=== PATIENT | female | born 1995 | race Hispanic/Latino ===

== ENCOUNTER 2018-08-29 02:46 | Emergency (ER) | payer SELFPAY ==
[~2018-08-29 02:46] MED LIST: TYL3 PO
[2018-08-29] MEDS ORDERED: DOXYCYCLINE HYCLATE 100 MG TABLET PO ONE (03:36)
[2018-08-29] MEDS ORDERED: AZITHROMYCIN 250 MG TABLET PO ONE (03:37)
[2018-08-29] MEDS ORDERED: LIDOCAINE HCL-MPF 1% 2ML VIAL ONE (03:37)
[2018-08-29] MEDS ORDERED: CEFTRIAXONE SODIUM 1 GM ONE (03:37)
[2018-08-29 03:45] LABS: BILIRUBIN,URINE Negative (NEGATIVE); COLOR,URINE Yellow (YELLOW); GLUCOSE, URINE (UA) Negative (NEGATIVE); KETONES,URINE Negative (NEGATIVE); LEUKOCYTE ESTERASE ,URINE Moderate (NEGATIVE); NITRATE,URINE Negative (NEGATIVE); OCCULT BLOOD,URINE Negative (NEGATIVE); PH,URINE 6.5 (5.0-8.0); PROTEIN,URINE Negative (NEGATIVE)
[2018-08-29 03:46] LABS: HCG,QUAL RESULT NEGATIVE (NEGATIVE)
[2018-08-29 03:47] LABS: APPEARANCE,URINE SLIGHTLY CLOUDY (CLEAR)
[2018-08-29 03:59] LABS: BACTERIA,URINE Few /HPF (None Seen); RBC,URINE None Seen /HPF (0-1)
== END 2018-08-29 04:27 | disposition home or self-care (01) ==
LOC: EDH 02:46
DX: N39.0 Urinary tract infection, site not specified (principal); N73.9 Female pelvic inflammatory disease, unspecified; Z90.49 Acquired absence of other specified parts of digestive tract; Z98.890 Other specified postprocedural states
CPT/HCPCS: 81001; 81025; 87088; 87210; 87486; 87797; 96372; 99283; J0696; J3490

== ENCOUNTER 2022-02-08 11:52 | Observation (INO) | payer MEDICAID ==
[~2022-02-08] VITALS: Ht 165.1 cm; Wt 115.7 kg
[2022-02-08 13:10] LABS: BASOPHILS % (AUTO) 0.3 % (0.0-5.0); EOSINOPHILS % (AUTO) 0.9 % (0.0-8.0); HEMATOCRIT 38.3 % (36-48); LYMPHOCYTES % (AUTO) 13.9 % (21.0-51.0); MEAN CORPUSCULAR HEMOGLOBIN 28.4 pg (27.0-33.0); MEAN CORPUSCULAR HGB CONC 33.7 g/dL (32.0-36.0); MEAN CORPUSCULAR VOLUME 84.2 fL (79-99); MONOCYTES % (AUTO) 6.2 % (3.0-13.0); NEUTROPHILS % (AUTO) 78.3 % (40.0-77.0); PLATELET COUNT (AUTO) 247 K/uL (130-400); RED BLOOD CELL COUNT(AUTO) 4.55 MIL/uL (4.00-5.50); RED CELL DISTRIBUTION WIDTH 14.5 % (11.0-15.5); WHITE BLOOD COUNT (AUTO) 7.9 K/uL (4.8-10.8)
[2022-02-08 13:11] LABS: APPEARANCE,URINE SL CLOUDY (CLEAR); BILIRUBIN,URINE NEGATIVE (NEGATIVE); COLOR,URINE YELLOW (YELLOW); GLUCOSE, URINE (UA) NEGATIVE (NEGATIVE); KETONES,URINE NEGATIVE (NEGATIVE); LEUKOCYTE ESTERASE ,URINE LARGE (NEGATIVE); NITRATE,URINE NEGATIVE (NEGATIVE); OCCULT BLOOD,URINE NEGATIVE (NEGATIVE); PROTEIN,URINE NEGATIVE (NEGATIVE); UROBILINOGEN,URINE 0.2 mg/dL (0.2-1.0)
[2022-02-08 13:20] LABS: BACTERIA,URINE Moderate /HPF (None Seen); MUCUS,URINE Moderate LPF (None Seen); RBC,URINE 0-1 /HPF (0-1)
[2022-02-08 13:27] LABS: INR 0.93 (0.85-1.15); PROTHROMBIN TIME 9.8 SEC (9.6-11.6)
[2022-02-08 13:28] LABS: PARTIAL THROMBOPLASTIN TIME 27.4 SEC (26.3-35.5)
[2022-02-08 13:30] LABS: ALBUMIN 2.8 g/dL (3.5-5.0); CREATININE 0.6 mg/dL (0.5-1.5); POTASSIUM 3.5 mmol/L (3.5-5.1); TOTAL PROTEIN, SERUM 6.4 g/dL (6.0-8.3); URIC ACID 3.8 mg/dL (2.6-7.2)
[2022-02-08] MEDS: CELESTONE SOLUSPAN 6 MG/ML 5ML VIAL IM SCH (14:09)
[2022-02-08 14:48] VITALS: BP 137/61
[2022-02-08] MEDS ORDERED: PREN1TAB26 PO (15:11)
[2022-02-08 16:00] VITALS: BP 114/75
[2022-02-08 19:21] VITALS: BP 112/59
[2022-02-08] MEDS: INSULIN HUMULIN R 100 UNIT/ML 3ML SQ SCH (21:00)
[2022-02-08 23:09] VITALS: BP 121/63
[2022-02-09 04:11] VITALS: BP 115/70
[2022-02-09 07:06] VITALS: BP 123/62
[2022-02-09] MEDS: INSULIN HUMULIN R 100 UNIT/ML 3ML SQ SCH ×2 (07:30→11:30)
[2022-02-09 11:30] VITALS: BP 108/65
[2022-02-09 13:04] LABS: CREATININE,SERUM FOR CRCL 0.6 mg/dL (0.6-1.3)
[2022-02-09 13:13] LABS: COLLECTION PERIOD,URINE 24 HR; TOTAL VOLUME 24HRS,URINE 2350 mL
[2022-02-09 13:14] LABS: TPROTEIN TIMED,URINE 15 mg/dL; TPROTEIN U,24HR CALC 353 mg/24HR (0-165)
[2022-02-09] MEDS: CELESTONE SOLUSPAN 6 MG/ML 5ML VIAL IM SCH (13:44)
[2022-02-09 15:45] VITALS: BP 118/66
== END 2022-02-09 16:45 | disposition home or self-care (01) ==
LOC: LDH 11:52 → WSH 14:45
PROVIDERS: ADMIT Obstetrics & Gynecology; ATTEND Obstetrics & Gynecology
DX: O26.893 Other specified pregnancy related conditions, third trimester (principal); R03.0 Elevated blood-pressure reading, without diagnosis of hypertension; O24.419 Gestational diabetes mellitus in pregnancy, unspecified control; Z3A.30 30 weeks gestation of pregnancy
CPT/HCPCS: 96372 ×2; 59025 ×2; 96360; 96361; 84550; 80053; 85025; 85384; 85610; 85730; 87088; 82948 ×4; 81001; 36415; 76805; 82575; 84156; G0378 ×29; G0379; J0702 ×2

== ENCOUNTER 2022-03-04 07:44 | Observation (INO) | payer MEDICAID ==
[~2022-03-04] VITALS: Ht 165.1 cm; Wt 115.7 kg
[~2022-03-04 07:44] MED LIST changes: +PREN1TAB26 PO; -TYL3 PO
[2022-03-04 07:45] VITALS: BP 137/74
[2022-03-04] MEDS ORDERED: LACTATED RINGERS 1000ML IV SCH (08:50)
== END 2022-03-04 10:48 | disposition home or self-care (01) ==
LOC: EDH 07:44 → LDH 07:45
PROVIDERS: ADMIT Obstetrics & Gynecology; ATTEND Obstetrics & Gynecology
DX: O26.893 Other specified pregnancy related conditions, third trimester (principal); O62.9 Abnormality of forces of labor, unspecified; Z3A.34 34 weeks gestation of pregnancy; Z98.891 History of uterine scar from previous surgery
CPT/HCPCS: 59025; 96360; 96361; G0378 ×3; G0379; J7120

== ENCOUNTER 2022-03-17 15:12 | Inpatient (IN) | payer MEDICAID ==
[~2022-03-17] VITALS: Ht 165.1 cm; Wt 116.6 kg
[2022-03-17] MEDS ORDERED: CEFAZOLIN SODIUM 1 GM VIAL IVP PRN ×2 (15:30→17:30)
[2022-03-17] MEDS ORDERED: OXYTOCIN-LR 20 UNITS/1000 ML 1,000 ML IV SCH (15:30)
[2022-03-17] MEDS ORDERED: LACTATED RINGERS 1000ML 1,000 ML IV PRN (15:30)
[2022-03-17] MEDS ORDERED: LACTATED RINGERS 1000ML 1,000 ML IV SCH (15:30)
[2022-03-17 15:59] LABS: BASOPHILS % (AUTO) 0.2 % (0.0-5.0); EOSINOPHILS % (AUTO) 0.8 % (0.0-8.0); HEMATOCRIT 39.1 % (36-48); LYMPHOCYTES % (AUTO) 16.9 % (21.0-51.0); MEAN CORPUSCULAR HEMOGLOBIN 27.5 pg (27.0-33.0); MEAN CORPUSCULAR HGB CONC 33.5 g/dL (32.0-36.0); NEUTROPHILS % (AUTO) 75.8 % (40.0-77.0); PLATELET COUNT (AUTO) 269 K/uL (130-400); RED BLOOD CELL COUNT(AUTO) 4.77 MIL/uL (4.00-5.50); RED CELL DISTRIBUTION WIDTH 14.4 % (11.0-15.5); WHITE BLOOD COUNT (AUTO) 8.9 K/uL (4.8-10.8)
[2022-03-17 16:08] LABS: CREATININE 0.6 mg/dL (0.5-1.5); INR 0.93 (0.85-1.15); POTASSIUM 3.5 mmol/L (3.5-5.1); PROTHROMBIN TIME 9.8 SEC (9.6-11.6)
[2022-03-17 16:09] LABS: PARTIAL THROMBOPLASTIN TIME 27.9 SEC (26.3-35.5)
[2022-03-17 16:13] LABS: ALBUMIN 2.8 g/dL (3.5-5.0); TOTAL PROTEIN, SERUM 6.6 g/dL (6.0-8.3); URIC ACID 3.4 mg/dL (2.6-7.2)
[2022-03-17] MEDS ORDERED: CEFAZOLIN SODIUM 3 GM VIAL IV ONE (17:20)
[2022-03-17] MEDS ORDERED: OXYTOCIN 10 USP UNITS/ML ONE ×2 (17:46→18:09)
[2022-03-17] MEDS ORDERED: PROMETHAZINE HCL 25 MG/ML 1ML AMPULE IM PRN (18:30)
[2022-03-17] MEDS ORDERED: 0.9%NACL 10ML VIAL IVP PRN (18:30)
[2022-03-17] MEDS ORDERED: DEXTROSE 5 %-0.45 % NACL 1,000 ML IV PRN (18:30)
[2022-03-17] MEDS ORDERED: OXYTOCIN-LR 20 UNITS/1000 ML 1,000 ML IV PRN (18:30)
[2022-03-17] MEDS ORDERED: MEPERIDINE-PF 75 MG/ML SYG IM PRN (18:30)
[2022-03-17] MEDS ORDERED: EPHEDRINE SULFATE 50 MG/ML AMPULE IVP PRN (19:00)
[2022-03-17] MEDS ORDERED: DiphenhydrAMINE HCL 50 MG/ML VIAL IVP PRN (19:00)
[2022-03-17] MEDS ORDERED: NALOXONE HCL 0.4 MG/1 ML ML IVP PRN ×3 (19:00)
[2022-03-17] MEDS: ONDANSETRON 4MG INJ IVP PRN (20:26)
[2022-03-17 21:47] VITALS: BP 114/65
[2022-03-17 23:24] VITALS: BP 132/74
[2022-03-18] MEDS: ONDANSETRON 4MG INJ IVP PRN (00:54)
[2022-03-18 00:56] VITALS: BP 112/52
[2022-03-18] MEDS: CEFAZOLIN SODIUM 1 GM VIAL IVP SCH ×3 (01:15→17:30)
[2022-03-18] MEDS ORDERED: SIMETHICONE 80 MG TAB.CHEW PO PRN (03:30)
[2022-03-18] MEDS ORDERED: ACETAMINOPHEN WITH CODEINE 1 TAB TAB PO PRN (03:30)
[2022-03-18] MEDS ORDERED: HYDROCODONE/ACETAMINOPHEN 5/325 MG TAB PO PRN (03:30)
[2022-03-18] MEDS ORDERED: BISACODYL 10 MG SUPP.RECT RC PRN (03:30)
[2022-03-18] MEDS ORDERED: LANOLIN 30GM OINTMENT TP PRN (03:30)
[2022-03-18] MEDS ORDERED: IBUPROFEN 600 MG TABLET PO PRN (03:30)
[2022-03-18] MEDS ORDERED: ACETAMINOPHEN 500 MG TABLET PO PRN (03:30)
[2022-03-18 04:15] VITALS: BP 129/75
[2022-03-18 06:53] LABS: MEAN CORPUSCULAR HEMOGLOBIN 27.8 pg (27.0-33.0); MEAN CORPUSCULAR HGB CONC 33.7 g/dL (32.0-36.0); MEAN CORPUSCULAR VOLUME 82.4 fL (79-99); RED BLOOD CELL COUNT(AUTO) 4.25 MIL/uL (4.00-5.50); RED CELL DISTRIBUTION WIDTH 14.3 % (11.0-15.5); WHITE BLOOD COUNT (AUTO) 11.1 K/uL (4.8-10.8)
[2022-03-18] MEDS ORDERED: DIPH,PERTUSS(ACELL),TET VAC/PF 0.5 ML VIAL IM SCH (07:00)
[2022-03-18 07:35] VITALS: BP 127/70
[2022-03-18] MEDS ORDERED: DOCUSATE SODIUM 100 MG CAP PO SCH (09:00)
[2022-03-18 09:06] LABS: RAPID PLASMA REAGIN NONREACTIVE (NONREACTIVE)
[2022-03-18 13:27] VITALS: BP 116/75
[2022-03-18 16:26] VITALS: BP 125/67
[2022-03-18 19:13] VITALS: BP 123/82
== END 2022-03-18 20:50 | disposition home or self-care (01) | DRG 540 ==
LOC: LDH 15:12 → WSH 21:44
PROVIDERS: ADMIT Obstetrics & Gynecology; ATTEND Obstetrics & Gynecology
PROC: 10D00Z1 Extraction of Products of Conception, Low, Open Approach (ICD-10-PCS; principal; 2022-03-17 17:19)
PROC: 3E0334Z Introduction of Serum, Toxoid and Vaccine into Peripheral Vein, Percutaneous Approach (ICD-10-PCS; 2022-03-18)
DX: O34.211 Maternal care for low transverse scar from previous cesarean delivery (principal); O99.214 Obesity complicating childbirth; O14.04 Mild to moderate pre-eclampsia, complicating childbirth; Z3A.36 36 weeks gestation of pregnancy; Z37.0 Single live birth; Z29.13 Encounter for prophylactic Rho(D) immune globulin
CPT/HCPCS: 36415; 59510; 80053; 83033; 84550; 85025; 85027; 85384; 85610; 85730; 86592; 86701; 86850; 86870; 86900; 86901; 87340; 87390; A4344; G0378; J0690; J1200; J2405; J2590; J2791; J7120

== ENCOUNTER 2023-02-02 05:57 | Emergency (ER) | payer OTHER, MEDICAID ==
[~2023-02-02] VITALS: Ht 167.6 cm; Wt 106.1 kg
[2023-02-02] MEDS ORDERED: KETOROLAC 30MG VIAL (30MG/ML) IM ONE (08:00)
[2023-02-02] MEDS ORDERED: IBUP-2070 PO (08:17)
[2023-02-02 10:19] VITALS: BP 148/71; PULSE 64; RESP 16; O2SAT 98
== END 2023-02-02 10:18 | disposition home or self-care (01) ==
LOC: EDH 05:57
DX: S49.92XA Unspecified injury of left shoulder and upper arm, initial encounter (principal); Z90.49 Acquired absence of other specified parts of digestive tract; X50.0XXA Overexertion from strenuous movement or load, initial encounter; Y93.89 Activity, other specified; Y92.89 Other specified places as the place of occurrence of the external cause; Y99.8 Other external cause status
CPT/HCPCS: 99283; 73030; 96372; J1885

== ENCOUNTER 2023-07-04 21:13 | Emergency (ER) | payer MEDICAID, OTHER ==
[~2023-07-04] VITALS: Ht 167.6 cm; Wt 103.0 kg
[~2023-07-04 21:13] MED LIST changes: +IBUP-2070 PO
[2023-07-05] MEDS ORDERED: CYCL-309 PO (00:18)
[2023-07-05 00:19] VITALS: BP 114/64; PULSE 91; RESP 18; O2SAT 97
[2023-07-05] MEDS ORDERED: KETOROLAC 30MG VIAL (30MG/ML) IM ONE (00:30)
== END 2023-07-05 00:27 | disposition home or self-care (01) ==
LOC: EDH 21:13
DX: M25.50 Pain in unspecified joint (principal); Z90.49 Acquired absence of other specified parts of digestive tract; Z98.51 Tubal ligation status
CPT/HCPCS: 99283; 96372; J1885

== ENCOUNTER 2024-03-20 14:21 | Emergency (ER) | payer OTHER ==
[~2024-03-20] VITALS: Ht 167.6 cm; Wt 99.8 kg
[~2024-03-20 14:21] MED LIST changes: +CYCL-309 PO
[2024-03-20 16:09] LABS: APPEARANCE,URINE CLEAR (CLEAR); BILIRUBIN,URINE NEGATIVE (NEGATIVE); COLOR,URINE YELLOW (YELLOW); GLUCOSE, URINE (UA) NEGATIVE (NEGATIVE); KETONES,URINE 5 mg/dL (NEGATIVE); LEUKOCYTE ESTERASE ,URINE 75 Leu/uL (NEGATIVE); NITRATE,URINE NEGATIVE (NEGATIVE); OCCULT BLOOD,URINE NEGATIVE (NEGATIVE); PROTEIN,URINE 10 mg/dL (NEGATIVE); UROBILINOGEN,URINE 0.2 mg/dL (0.2-1.0)
[2024-03-20 16:10] LABS: ADD UA MICROSCOPIC YES
[2024-03-20 16:18] LABS: MUCUS,URINE RARE LPF (None Seen); SQUAMOUS EPITHELIAL CELL,UR MOD /HPF (0-2)
[2024-03-20 16:24] LABS: HCG,QUALITATIVE URINE NEGATIVE (NEGATIVE)
[2024-03-20 16:40] LABS: BASOPHILS # (AUTO) 0.04 K/uL (0.00-0.20); BASOPHILS % (AUTO) 0.4 % (0.0-5.0); EOSINOPHILS # (AUTO) 0.11 K/uL (0.00-0.70); EOSINOPHILS % (AUTO) 1.1 % (0.0-8.0); HEMATOCRIT 40.8 % (36-48); IMMATURE GRANULOCYTE ABSOLUTE 0.03 K/uL (0-1); LYMPHOCYTES # (AUTO) 2.4 K/uL (1.0-4.8); LYMPHOCYTES % (AUTO) 24.9 % (21.0-51.0); MEAN CORPUSCULAR HEMOGLOBIN 26.9 pg (27.0-33.0); MEAN CORPUSCULAR HGB CONC 32.4 g/dL (32.0-36.0); MEAN CORPUSCULAR VOLUME 83.1 fL (79-99); MONOCYTES # (AUTO) 0.6 K/uL (0.1-1.0); MONOCYTES % (AUTO) 6.3 % (3.0-13.0); NEUTROPHILS # (AUTO) 6.4 K/uL (1.8-7.7); PLATELET COUNT (AUTO) 336 K/uL (130-400); RED BLOOD CELL COUNT(AUTO) 4.91 MIL/uL (4.00-5.50); RED CELL DISTRIBUTION WIDTH 14.2 % (11.0-15.5); WHITE BLOOD COUNT (AUTO) 9.6 K/uL (4.8-10.8)
[2024-03-20 16:42] LABS: CREATININE 0.7 mg/dL (0.5-1.0); POTASSIUM 3.9 mmol/L (3.5-5.1)
[2024-03-20] MEDS: dexaMETHasone SOD PHOSPHATE 4 MG/ML 1ML VIAL IM ONE (17:53)
[2024-03-20] MEDS: HYDROcodone/APAP 5/325 1 TAB TABLET PO ONE (17:53)
[2024-03-20] MEDS: CYCLOBENZAPRINE HCL 10 MG TABLET PO ONE (17:53)
[2024-03-20] MEDS ORDERED: CYCL10TA16 PO (18:53)
[2024-03-20] MEDS ORDERED: IBUP-2077 PO (18:53)
[2024-03-20 18:56] VITALS: BP 123/68; PULSE 88; RESP 18; TEMP 98.7; O2SAT 98
== END 2024-03-20 19:00 | disposition home or self-care (01) ==
LOC: EDH 14:21
DX: S39.012A Strain of muscle, fascia and tendon of lower back, initial encounter (principal); Z79.899 Other long term (current) drug therapy; Z98.890 Other specified postprocedural states; X58.XXXA Exposure to other specified factors, initial encounter; Y93.89 Activity, other specified; Y92.89 Other specified places as the place of occurrence of the external cause; Y99.8 Other external cause status
CPT/HCPCS: 99284; 80048; 85025; 87086; 81001; 81025; 36415; 72100; 96372; J1100